=== PATIENT | female | born 1960 | race Caucasian/White ===

== ENCOUNTER 2017-06-12 11:37 | Emergency (ER) | payer OTHER ==
[2017-06-12 11:59] VITALS: BP 135/74
--- NOTE | 2017-06-12 12:22 | UC ---
Skin Complaint HPI - HPI Summary HPI Summary: skin rash left lower leg x 3 weeks the rash is getting larger, with central clearing , not itchy , no pain, no hx of tick bite, no fever, no chills. - History of Current Complaint Chief Complaint: UCRash Time Seen by Provider: 06/12/17 11:41 Stated Complaint: RASH Hx Obtained From: Patient Onset/Duration: Gradual Onset, Lasting Weeks - 3, Still Present Timing: Constant Onset Severity: Mild Current Severity: Moderate Location: Other - left lower ext , below the left knee Character: Redness Aggravating: Nothing Alleviating: Nothing Associated Signs & Symptoms: Positive: Negative - Allergy/Home Medications Allergies/Adverse Reactions: Allergies Allergy/AdvReac Type Severity Reaction Status Date / Time antihistamines AdvReac insomnia, Uncoded 06/12/17 11:46 jittery, hype Home Medications: Home Medications Lactobacillus [Probiotic] 1 cap PO DAILY 06/12/17 [History Confirmed 06/12/17] Mupirocin Calcium (Topical) [Bactroban] 06/12/17 [History] Logan-3 Fatty Acids [Fish Oil] 1,000 mg PO DAILY 06/12/17 [History Confirmed ] Pitavastatin Calcium [Livalo] 1 mg PO DAILY 06/12/17 [History Confirmed 06/12/17 ] Valsartan TAB* [Diovan TAB*] 80 mg PO DAILY 06/12/17 [History Confirmed 06/12/17 ] Review of Systems Constitutional: Negative Skin: Rash Eyes: Negative ENT: Negative Respiratory: Negative Cardiovascular: Negative All Other Systems Reviewed And Are Negative: Yes PMH/Surg Hx/FS Hx/Imm Hx Previously Healthy: Yes - Surgical History Surgical History: None - Family History Known Family History: Negative: Diabetes - Social History Alcohol Use: Occasionally Substance Use Type: None Smoking Status (MU): Light Every Day Tobacco Smoker Type: Cigarettes Amount Used/How Often: 1/2 PPD Household Exposure Type: Cigarettes Physical Exam Triage Information Reviewed: Yes Appearance: Well-Appearing, No Pain Distress, Well-Nourished Vital Signs: Initial Vital Signs Temp 99.1 F 06/12/17 11:48 Pulse 82 06/12/17 11:48 Resp 20 06/12/17 11:48 BP 135/74 06/12/17 11:48 Pulse Ox 97 06/12/17 11:48 Vital Signs Reviewed: Yes Eyes: Positive: Conjunctiva Clear ENT: Positive: Normal ENT inspection, Hearing grossly normal, Pharynx normal Neck: Positive: Supple, Nontender, No Lymphadenopathy Respiratory: Positive: Chest non-tender, Lungs clear, Normal breath sounds Cardiovascular: Positive: RRR, No Murmur, Pulses Normal Skin: Positive: rashes - circular rash left lower ext, with centeral clearing Course/Dx - Course Course Of Treatment: will check for lyme. start doxy 100 mg bid x 21 days - Diagnoses Provider Diagnoses: dermatitis leg leg Discharge - Discharge Plan Condition: Stable Disposition: HOME Prescriptions: DOXYcycline CAP(*) [DOXYcycline 100MG CAP(*)] 100 mg PO BID #42 cap Ketoconazole 2 % CREAM (NF) [Nizoral 2% CREAM (NF)] 1 applic TOPICAL BID #60 gm Patient Education Materials: Lyme Disease (ED) Additional Instructions: concern about Lyme disease will start Doxy 100 mg bid x 21 days will check Lyme titers , please call the office in 2 days for the results will also start topical treatment with Ketoconazol for possible ringwarm
--- NOTE | 2017-06-16 06:52 | ED ---
Progress - Progress Note Progress Note: lyme (-), follow up with PCP before stopping antibiotic. Course/Dx - Course Course Of Treatment: will check for lyme. start doxy 100 mg bid x 21 days - Diagnoses Provider Diagnoses: Rash
[2017-06-16 15:10] LABS: Lyme Disease IgG Ab WB Negative (Negative)
== END 2017-06-12 12:40 | disposition home or self-care (01) ==
LOC: UCCORT 11:37
DX: L30.9 Dermatitis, unspecified (principal); F17.210 Nicotine dependence, cigarettes, uncomplicated
CPT/HCPCS: 86617; 86618; 99202; G0463